=== PATIENT | female | born 1930 | race Caucasian/White ===

== ENCOUNTER → 2016-10-23 | Outpatient (CLI) | payer MEDICARE, OTHER ==
[~2016-10-23] MED LIST: DILTIAZEM240 M2 PO; HYDR12.5C PO; LISINOPRIL10 MG PO; PERCOCET 325 MG1 TA6 PO; VOLTAREN50 MG PO
== END | disposition home or self-care (01) ==
LOC: CT 15:54
DX: I67.82 Cerebral ischemia (principal); G51.0 Bell's palsy; I25.10 Atherosclerotic heart disease of native coronary artery without angina pectoris

== ENCOUNTER → 2017-02-27 | Day surgery (SDC) | payer MEDICARE, OTHER ==
[~2017-02-27] VITALS: Ht 167.6 cm; Wt 66.2 kg
[~2017-02-27] MED LIST changes: +ASPIRIN81 M1 PO; +ENALAPRIL5 MG PO; +LOVASTATIN10 MG PO; +MOBIC7.5 MG PO
--- NOTE | ~2017-02-27 | O ---
[place], [place] OPERATIVE NOTE NAME: JESSICA JACKSON [facility] #: [id number] UNIT #: [id number] ROOM: DOCTOR: GIO HERNANDEZ MD BIRTHDATE: [birth year] DOS: 02/27/2017 PREOPERATIVE DIAGNOSIS: Cataract, left eye. POSTOPERATIVE DIAGNOSIS: Cataract, left eye. OPERATION: Extracapsular cataract extraction by phacoemulsification with posterior chamber intraocular lens implantation, left eye. ANESTHESIA: Monitored standby. OPERATIVE FINDINGS AND PROCEDURE: 2% Xylocaine topical anesthetic gel was applied to the eye in the preop area. The patient was taken to the operating room and prepped and draped in the standard fashion for sterile intraocular surgery. A time out procedure was performed verifying correct patient, correct site and corrects lens with lAy Hernandez M.D. The operating microscope was swung into position and the lid speculum was inserted. Using a Celeste paracentesis blade, a paracentesis was made through clear cornea. Viscoelastic was used to fill the anterior chamber. Using a metal keratome a 2.4 mm self-sealing clear corneal cataract incision was made temporally at the limbus. Using a pre-bent 25 gauge cystotome needle, a standard continuous curvilinear capsulorrhexis was performed. The anterior capsule was removed with forceps. The lens nucleus was hydrodissected and phacoemulsified in the posterior chamber. Cortical material was removed with the irrigation aspiration hand piece and the posterior capsule was then polished with a curet under irrigation. The posterior chamber and capsular bag were filled with viscoelastic. A posterior chamber intraocular lens manufactured by: [employer], Model #[id number], and 21.0 diopters in strength were then inserted into the posterior chamber and within the capsular bag using the lens cartridge and injector system. Viscoelastic was removed using the irrigation aspiration handpiece. The anterior chamber was filled with balanced salt solution through the paracentesis. Both the paracentesis site and cataract incisions were hydrated with BSS and verified to be water-tight and self-sealing. Cefuroxime 1 mg/0.1 mL was injected into the anterior chamber through the paracentesis site. The incision checked to be water-tight using a Weck-Sandie sponge. The integrity of the cataract wound and ocular tension were checked. Lid speculum and drapes were removed. The patient was transferred from the operating room to the recovery room in satisfactory condition. [place], [place] OPERATIVE NOTE NAME: MANUELRORYJESSICA J UNIT #: [id number] ROOM: DOCTOR: GIO HERNANDEZ MD BIRTHDATE: [birth year] GIO HERNANDEZ MD CM:OPRECORD:OPERATIVE NOTE [id number] GIO HERNANDEZ MD 02/27/17 1632 interface
[2017-02-27 14:01] VITALS: BP 167/64
[2017-02-27 14:15] VITALS: BP 161/62
[2017-02-27 14:30] VITALS: BP 156/58
== END | disposition home or self-care (01) ==
LOC: SDC 02-21 11:00
DX: H26.9 Unspecified cataract (principal); I10 Essential (primary) hypertension; Z98.890 Other specified postprocedural states

== ENCOUNTER → 2017-03-27 | Day surgery (SDC) | payer MEDICARE, OTHER ==
[~2017-03-27] VITALS: Ht 167.6 cm; Wt 66.2 kg
[~2017-03-27] MED LIST changes: +OCUFLOX 0.3% 5 M5 ML OD; +PRED FORTE 1 ML1 ML OD
--- NOTE | ~2017-03-27 | O ---
[place], [place] OPERATIVE NOTE NAME: JESSICA JACKSON [facility] #: [id number] UNIT #: [id number] ROOM: DOCTOR: GIO HERNANDEZ MD BIRTHDATE: [birth year] DOS: 03/27/2017 PREOPERATIVE DIAGNOSIS: Cataract, right eye. POSTOPERATIVE DIAGNOSIS: Cataract, right eye. OPERATION: Extracapsular cataract extraction by phacoemulsification with posterior chamber intraocular lens implantation, right eye. ANESTHESIA: Monitored standby. OPERATIVE FINDINGS AND PROCEDURE: 2% Xylocaine topical anesthetic gel was applied to the eye in the preop area. The patient was taken to the operating room and prepped and draped in the standard fashion for sterile intraocular surgery. A time out procedure was performed verifying correct patient, correct site and corrects lens with Aly Hernandez MD. The operating microscope was swung into position and the lid speculum was inserted. Using a Celeste paracentesis blade, a paracentesis was made through clear cornea. Viscoelastic was used to fill the anterior chamber. Using a metal keratome a 2.4 mm self-sealing clear corneal cataract incision was made temporally at the limbus. Using a pre-bent 25 gauge cystotome needle, a standard continuous curvilinear capsulorrhexis was performed. The anterior capsule was removed with forceps. The lens nucleus was hydrodissected and phacoemulsified in the posterior chamber. Cortical material was removed with the irrigation aspiration hand piece and the posterior capsule was then polished with a curet under irrigation. The posterior chamber and capsular bag were filled with viscoelastic. A posterior chamber intraocular lens manufactured by: [employer], Model #[id number], and 22.0 diopters in strength were then inserted into the posterior chamber and within the capsular bag using the lens cartridge and injector system. Viscoelastic was removed using the irrigation aspiration handpiece. The anterior chamber was filled with balanced salt solution through the paracentesis. Both the paracentesis site and cataract incisions were hydrated with BSS and verified to be water-tight and self-sealing. Cefuroxime 1 mg/0.1 mL was injected into the anterior chamber through the paracentesis site. The incision checked to be water-tight using a Weck-Sandie sponge. The integrity of the cataract wound and ocular tension were checked. Lid speculum and drapes were removed. The patient was transferred from the operating room to the recovery room in satisfactory condition. [place], [place] OPERATIVE NOTE NAME: JESSICA JACKSON Marisa UNIT #: [id number] ROOM: DOCTOR: GIO HERNANDEZ MD BIRTHDATE: [birth year] GIO HERNANDEZ MD CM:OPRECORD:OPERATIVE NOTE 1135 1220 GIO HERNANDEZ MD 03/27/17 1218 interface
[2017-03-27 11:05] VITALS: BP 171/58
[2017-03-27 11:30] VITALS: BP 153/57
[2017-03-27 11:45] VITALS: BP 139/45
[2017-03-27 12:03] VITALS: BP 149/42
== END | disposition home or self-care (01) ==
LOC: SDC 03-22 09:30
DX: H26.8 Other specified cataract (principal); I10 Essential (primary) hypertension; Z98.890 Other specified postprocedural states; E78.00 Pure hypercholesterolemia, unspecified

== ENCOUNTER 2017-08-18 09:51 | Emergency (ER) | payer MEDICARE, OTHER ==
[~2017-08-18] VITALS: Ht 165.1 cm; Wt 66.7 kg
[2017-08-18 09:55] VITALS: BP 151/70
== END 2017-08-18 11:59 | disposition home or self-care (01) ==
LOC: ED 09:51
DX: S40.022A Contusion of left upper arm, initial encounter (principal); Z79.899 Other long term (current) drug therapy; Z79.82 Long term (current) use of aspirin; W22.8XXA Striking against or struck by other objects, initial encounter; Y93.89 Activity, other specified; Y92.89 Other specified places as the place of occurrence of the external cause; Y99.8 Other external cause status

== ENCOUNTER 2017-10-18 14:25 | Emergency (ER) | payer MEDICARE, OTHER ==
[~2017-10-18] VITALS: Ht 167.6 cm; Wt 63.5 kg
[2017-10-18] MEDS ORDERED: DECADRON4 MG PO (15:28)
[2017-10-18 16:00] VITALS: BP 171/68
== END 2017-10-18 15:40 | disposition home or self-care (01) ==
LOC: ED 14:25
DX: G93.89 Other specified disorders of brain (principal); R22.0 Localized swelling, mass and lump, head; Z79.899 Other long term (current) drug therapy; Z79.82 Long term (current) use of aspirin

== ENCOUNTER → 2018-03-03 | Outpatient (CLI) | payer MEDICARE, OTHER ==
[~2018-03-03] MED LIST changes: +DECADRON4 MG PO
[2018-03-03 14:00] LABS: CREATININE 0.81 mg/dL (0.55-1.02)
== END | disposition home or self-care (01) ==
LOC: MRI 13:00
PROVIDERS: Internal Medicine
DX: R51 Headache (principal)